=== PATIENT | male | born 2000 | race Two or more races ===

== ENCOUNTER 2021-05-20 09:39 | Emergency (ER) | payer OTHER ==
[~2021-05-20] VITALS: Ht 175.3 cm; Wt 90.6 kg
[2021-05-20 09:40] VITALS: BP 129/66
[2021-05-20] MEDS ORDERED: [UNRECOGNIZED DRUG - CODE] OP (11:39)
== END 2021-05-20 11:44 | disposition home or self-care (01) ==
LOC: M ED 09:39
DX: H10.10 Acute atopic conjunctivitis, unspecified eye (principal)